=== PATIENT | female | born 1990 | race Caucasian/White ===

== ENCOUNTER 2016-12-02 05:59 | Observation (INO) | payer SELFPAY ==
--- NOTE | ~2016-12-02 | HP ---
History And Physical [facility] [address] [place]. [address] NAME: LUCRETIA CHAMORRO : 89 STATUS : ADM Jena PAT#: [id number] AGE: 26 ADM/REG DATE : 12/02/16 MR#: [id number] REPORT SERV DATE: 12/02/16 DICTATED BY: ANDRE LIN DATE: 12/02/16 REPORT STATUS : Draft TRANSCRIBED BY: MODRenay DATE: 12/02/16 DATE OF ADMISSION: 12/02/2016 REASON FOR ADMISSION: Hypertension, noncompliance. HISTORY OF PRESENT ILLNESS: This is a 26-year-old white female, who has been hospitalized every November for the last three years. In 2014, she presented with hypertension, who has had an abdominal ultrasound, looking for renal artery stenosis. Her MCV at that time was in the 95-97 range, however, is gradually increased yearly since she has been admitted. She admits to binge drinking, but now CT scan of the abdomen shows evidence of fatty liver infiltration. She did not follow up for blood pressure followup at the [facility] as was recommended and she has been out of medicines for an undetermined period of time. She was seen in the emergency room by nurse practitionerMark, and then nurse practitionerMacho, and admission was requested by the hospitalist group. PAST MEDICAL HISTORY: Prior hospitalizations twice. Folic acid level was a little bit low at 3.6 on 01/10/2016 with a normal B12 level. HOME MEDICATIONS: None. SOCIAL HISTORY: She grew up in [place]. Still lives in [place]. Present boyfriend she has been living with for the last four months. She practices no active contraception and says she is not trying to get . She smokes cigarettes about a pack a day or more or less. She smokes marijuana on about a weekly basis. She drinks about four to five days a week by her admission in an un-quantitated amount, usually to the point of drunkenness at least equivalent of two 4-ounce avtar per day. FAMILY HISTORY: Mother of cervical cancer. Father with hypertension, all have hypertensions throughout the father side of the family. She had two brothers, one with autism. REVIEW OF SYSTEMS: She has a headache when she comes off her medication early on, but does not persist. She has had no eye pain, double vision, nausea, vomiting, or diarrhea. No fits, seizures, convulsions, or unilateral weakness. No melena or hematemesis. She did have back pain, flank pain without dysuria, but was discovered to have pyuria by nurse practitioner, Macho. In the emergency room, she was given Rocephin. She has had no fever, chills, night sweats, melena, hematemesis, unilateral weakness, nausea, vomiting, or diarrhea. The remainder of review of systems is negative. PHYSICAL EXAMINATION: GENERAL: White female, very unkept, in no acute distress. HEENT: EOMI. Sclerae clear. Conjunctivae pink. Face is round and dubois shaped. NECK: No bruit without any JVD. History And Physical [address] [address] NAME: LUCRETIA CHAMORRO : 89 STATUS : ADM Jena PAT#: [id number] AGE: 26 ADM/REG DATE : 12/02/16 MR#: [id number] REPORT SERV DATE: 12/02/16 DICTATED BY: ANDRE LIN DATE: 12/02/16 REPORT STATUS : Draft TRANSCRIBED BY: JASMINE DATE: 12/02/16 CHEST: Clear to A and P. HEART: Regular S1, S2 without murmur, gallop, or click. BREASTS: Grossly without mass. ABDOMEN: Soft, nontender. Bowel sounds positive. No HSM. She does have abdominal centripetal obesity. EXTREMITIES: No edema. Distal pulses are intact in the dorsalis pedis and posterior tibial. Legs have no edema. NEUROLOGIC: She withdraws to plantar stimulation. Quality Control Director is equal and symmetric bilaterally. Coordination intact. SKIN: Dirty. She has a sour smell about her. She has a chapped medial upper lip and a piercing in the left nostril. LABORATORY DATA: Portable chest x-ray was done in the emergency room. Lungs were clear. Normal heart size. Troponin was 0.12, it has been elevated in the past. CT scan of the abdomen showed fatty liver. The CMP showed sodium 136, potassium 3.5, creatinine 0.7, glucose was 110, albumin 3.4, troponin 0.12. AST and ALT were normal. Bilirubin was 0.6. Partial thromboplastin time was 27. Her white count was 16.9, hemoglobin 15, hematocrit 44. MCV was 107.7. The urine drug screen showed cannabinoids only. Urine test negative. The urinalysis showed a large leukocyte esterase, positive nitrite, white count 15 per high-powered field with 7 red cells per high-powered field. ASSESSMENT: 1. Hypertensive urgency. This is likely rebound from cessation of drinking and cessation of medication. 2. Fatty liver likely secondary to excessive alcohol use over time. 3. Macrocytosis likely secondary to excessive alcohol use, though her folic acid level was low. We will replace B12 and folic acid while she is in the hospital here. 4. Urinary tract infection. Start Levaquin p.o. Check the reflex culture. PLAN: The patient is admitted to observation. Restarting home medication which was well tolerated before, though she never seek followup nor persistent medication for this. The patient has a dubois face, abdominal obesity as well, and may be evaluated for Maynard's disease in the future once she is off the alcohol and the blood pressure is under control. TAMI/JASMINE Andre Lin M.D. / [id number]
--- NOTE | ~2016-12-02 | DS ---
Discharge Summary [facility] [address] [place]. [address] NAME: LUCRETIA CHAMORRO : 89 STATUS : DIS Jena PAT#: [id number] AGE: 26 ADM/REG DATE : 12/02/16 MR#: [id number] REPORT SERV DATE: 12/03/16 DICTATED BY: DENA GASTON DATE: 12/03/16 REPORT STATUS : Draft TRANSCRIBED BY: MODL DATE: 12/03/16 ADMISSION DATE: 12/02/2016 DISCHARGE DATE: 12/03/2016 PCP is none but is going to be [facility]. FINAL DIAGNOSES: 1. Hypertension. 2. Urinary tract infection. 3. Fatty liver. 4. Alcohol abuse. 5. Hyponatremia. 6. Tobacco abuse. 7. Obesity. 8. Noncompliance. DIAGNOSTIC EXAM: Chest x-ray showing lungs clear. Heart size normal. CAT scan of the abdomen and pelvis showing no evidence of acute abnormality within the abdomen or pelvis. Hepatic steatosis. HOSPITAL COURSE: Please refer to the H and P done by Dr. Puente dated on 12/02/2016. Briefly, this is a 26-year-old female who comes in for abdominal pain and hypertension. The patient has a history of hypertension and was told several times to go to see a PCP or our [facility], but she never did. She continued having an unhealthy lifestyle with smoking and drinking and even the use of marijuana. The patient ran out of her medications three weeks ago and noticed that her blood pressure has been going up. She finally came to the emergency room and was admitted by Dr. Puente. The patient was placed on her metoprolol and hydrochlorothiazide. They got a urinalysis which shows a slightly dirty urine and started the patient on Levaquin and got a CAT scan for her abdominal pain which shows the above findings. The patient's blood pressure improved, her abdominal pain improved, and requests to go home. We do not have the cultures back for her UTI yet, but it seems like that the Levaquin is working. The patient was also found to have hyponatremia and this could be attributed to her drinking or her hydrochlorothiazide in which case it will not be good to keep the patient on the hydrochlorothiazide, so instead increase her metoprolol, and she likes it better, and she was counseled to stop smoking and drinking. The patient was told to follow up with the [facility], and she said she knows how to get there as her dad goes there, so once we finished the 24-hour urine collection ordered by Dr. Puente, we are going to discharge the patient home with family. She will be on the following medications: Levaquin 750 mg for two more days, metoprolol increased to 75 mg twice a day, and folic acid 1 mg a day. She will follow up with the [facility] in a month. This has been explained to her in front of a family member, and they agreed and understood the plan. TIME SPENT: 35 minutes. Discharge Summary [address] [place]. [address] NAME: LUCRETIA CHAMORRO : 89 STATUS : DIS Jena PAT#: [id number] AGE: 26 ADM/REG DATE : 12/02/16 MR#: [id number] REPORT SERV DATE: 12/03/16 DICTATED BY: DENA GASTON DATE: 12/03/16 REPORT STATUS : Draft TRANSCRIBED BY: JASMINE DATE: 12/03/16 DICTATED BY: Kulwant Collado/JASMINE Dena Gaston M.D. / [id number] CC: Dena Gaston M.D. NO PCP
[2016-12-02 05:45] LABS: ASCORBIC ACID (UR NOT ORDER) NEG (NEG); BILIRUBIN, URINE NEGATIVE (NEG); ER URINALYSIS TAT 0 Hrs 03 Mins; KETONE, URINE NEGATIVE (NEG); LEUKOCYTE ESTERASE(NOT OR LARGE (NEG); NITRITE (URINE) POS (NEG); WBC (NOT ORDERED) (RFLEX) 15 (0-5)
[2016-12-02 05:55] LABS: AMPHETAMINES (NOT ORD) NEG (NEG); BARBITURATES (NOT ORDERED NEG (NEG); BENZODIAZEPINES (NOT ORD) NEG (NEG); CANNABINOIDS (THC) POS (NEG); COCAINE (NOT ORDERED) NEG (NEG); OPIATES NEG (NEG); PHENCYCLIDINE(PCP) NEG (NEG); TRICYCLICS NEG (NEG)
[~2016-12-02 05:59] MED LIST: ADVIL PO; HCTZ12.5 PO; IBU400 PO; LEVOTHYROXIN25 MCG PO; LOP50 PO; LORTAB 5 PO; PROAIR HFA INH; SYN.025B PO
[2016-12-02 06:13] LABS: BASOPHILS 0.2 %; BASOPHILS ABSOLUTE 0.04 10/3/uL (0.0-0.16); EOSINOPHILS 2.5 %; EOSINOPHILS ABSOLUTE 0.43 10/3/uL (0.0-0.53); ER CBC TAT 0 Hrs 05 Mins; HEMATOCRIT 44.5 % (36.0-48.0); HEMOGLOBIN 15.5 g/dL (12.0-16.0); IMMATURE GRANULOCYTES 0.4 %; IMMATURE GRANULOCYTES ABSOLUTE 0.06 10/3/uL (0.0-0.11); LYMPHOCYTES 13.9 %; LYMPHOCYTES ABSOLUTE 2.35 10/3/uL (0.67-4.30); MEAN CORPUS HGB CONC 34.8 g/dL (32.0-36.0); MEAN CORPUSCULAR HEMOGLOB 37.5 pg (26.0-34.0); MEAN CORPUSCULAR VOLUME 107.7 fL (80-100); MEAN PLATELET VOLUME 9.6 fL (9.2-13.0); MONOCYTES 7.8 %; MONOCYTES ABSOLUTE 1.31 10/3/uL (0.21-1.20); NEUTROPHILS 75.2 %; NEUTROPHILS ABSOLUTE 12.69 10/3/uL (2.02-8.40); PLATELET COUNT 287 10/3/uL (150-400); RBC DISTRIBUTION WIDTH 13.8 % (12.0-16.0); RED CELL COUNT 4.13 10/6/uL (4.0-5.6); WHITE BLOOD CELLS 16.9 10/3/uL (4.5-10.5)
[2016-12-02 06:14] LABS: MANUAL DIFF NO %
[2016-12-02 06:19] LABS: PROTIME (NOT ORD) 13.3 SEC (12.0-14.5)
[2016-12-02 06:20] LABS: PARTIAL THROMBO TIME 27.3 SEC (22.5-37.2)
[2016-12-02 06:30] LABS: ALBUMIN 3.4 G/DL (3.5-5.0); ALKALINE PHOSPHATASE 72 U/L (45-117); BUN (BLOOD UREA NITROGEN) 6 MG/DL (6-23); CHLORIDE, SERUM 101 MMOL/L (96-112); CO2 (CARBON DIOXIDE) 27 MMOL/L (24-34); GFR AFRICAN AMERICAN 141 ML/MIN (>=60); GFR NON AFRICAN AMERICAN 121 ML/MIN (>=60); GLOBULIN 3.5 G/DL (2.5-4.1); GLUCOSE, SERUM 110 MG/DL (60-99); POTASSIUM, SERUM 3.5 MMOL/L (3.5-5.3); SGOT(AST) 29 U/L (5-40); SGPT(ALT) 42 U/L (5-65); SODIUM, SERUM 136 MMOL/L (135-148); TOTAL BILIRUBIN 0.6 MG/DL (0-1.2); TOTAL PROTEIN 6.9 G/DL (6.0-8.5)
[2016-12-02 06:31] LABS: TROPONIN I 0.12 NG/ML (<0.05)
[2016-12-02 09:25] LABS: TROPONIN I 0.12 NG/ML (<0.05)
[2016-12-02] MEDS ORDERED: MICROZIDE PO (09:39)
[2016-12-02] MEDS ORDERED: LOP50 PO (09:39)
[2016-12-02] MEDS ORDERED: ADVIL PO (09:40)
[2016-12-02] MEDS ORDERED: PROAIR HFA INH (09:40)
[2016-12-02] MEDS ORDERED: ZANTAC 150 PO (09:41)
[2016-12-02] MEDS ORDERED: POTASSIUM PO (09:42)
[2016-12-02] MEDS ORDERED: MULTIVIT/MIN PO (09:42)
[2016-12-03 04:31] LABS: BASOPHILS 0.1 %; BASOPHILS ABSOLUTE 0.01 10/3/uL (0.0-0.16); EOSINOPHILS 2.1 %; EOSINOPHILS ABSOLUTE 0.23 10/3/uL (0.0-0.53); HEMATOCRIT 43.5 % (36.0-48.0); HEMOGLOBIN 15.5 g/dL (12.0-16.0); IMMATURE GRANULOCYTES 0.3 %; IMMATURE GRANULOCYTES ABSOLUTE 0.03 10/3/uL (0.0-0.11); LYMPHOCYTES 21.7 %; LYMPHOCYTES ABSOLUTE 2.37 10/3/uL (0.67-4.30); MEAN CORPUS HGB CONC 35.6 g/dL (32.0-36.0); MEAN CORPUSCULAR HEMOGLOB 38.8 pg (26.0-34.0); MEAN PLATELET VOLUME 9.3 fL (9.2-13.0); MONOCYTES 12.2 %; MONOCYTES ABSOLUTE 1.33 10/3/uL (0.21-1.20); NEUTROPHILS 63.6 %; NEUTROPHILS ABSOLUTE 6.95 10/3/uL (2.02-8.40); PLATELET COUNT 243 10/3/uL (150-400); RBC DISTRIBUTION WIDTH 13.8 % (12.0-16.0); RED CELL COUNT 3.99 10/6/uL (4.0-5.6); WHITE BLOOD CELLS 10.9 10/3/uL (4.5-10.5)
[2016-12-03 04:32] LABS: MANUAL DIFF NO %
[2016-12-03 04:45] LABS: BUN (BLOOD UREA NITROGEN) 5 MG/DL (6-23); CALCIUM, SERUM 8.9 MG/DL (8.5-10.4); CHLORIDE, SERUM 105 MMOL/L (96-112); CO2 (CARBON DIOXIDE) 27 MMOL/L (24-34); CREATININE 0.67 MG/DL (0.55-1.02); GFR AFRICAN AMERICAN 143 ML/MIN (>=60); GFR NON AFRICAN AMERICAN 123 ML/MIN (>=60); GLUCOSE, SERUM 106 MG/DL (60-99); SODIUM, SERUM 132 MMOL/L (135-148)
[2016-12-03] MEDS ORDERED: LOP50 PO (13:23)
[2016-12-03] MEDS ORDERED: FOLIC PO (13:23)
[2016-12-03] MEDS ORDERED: LEVAQUIN750 MG PO (13:24)
[2016-12-05 08:14] LABS: TIME 24 h (()); TOTAL VOLUME 1175 mL (())
== END 2016-12-03 13:51 | disposition home or self-care (01) ==
LOC: ER 05:59 → CDU1 10:34
PROVIDERS: Internal Medicine; Nurse Practitioner; Physician Assistant
DX: I10 Essential (primary) hypertension (principal); N39.0 Urinary tract infection, site not specified; K70.0 Alcoholic fatty liver; E87.1 Hypo-osmolality and hyponatremia; E66.9 Obesity, unspecified; F17.210 Nicotine dependence, cigarettes, uncomplicated; Z91.19 Patient's noncompliance with other medical treatment and regimen; Z79.899 Other long term (current) drug therapy
CPT/HCPCS: 71010; 74176; 80048; 80053; 80305; 81001; 82530; 82977; 83735; 84484; 84703; 85025; 85610; 85730; 87077; 87086; 87186; 93005; 96372; 96374; 96375; 96376; 99285; A9270-GY; G0378; J0360; J1170; J2405

== ENCOUNTER 2017-03-15 12:03 | Emergency (ER) | payer SELFPAY ==
[~2017-03-15 12:03] MED LIST changes: +FOLIC PO; +LEVAQUIN750 MG PO; +MICROZIDE PO; +MULTIVIT/MIN PO; +POTASSIUM PO; +ZANTAC 150 PO
== END 2017-03-15 13:57 | disposition home or self-care (01) ==
LOC: ER 12:03
DX: S05.02XA Injury of conjunctiva and corneal abrasion without foreign body, left eye, initial encounter (principal); F17.200 Nicotine dependence, unspecified, uncomplicated; J45.909 Unspecified asthma, uncomplicated; I10 Essential (primary) hypertension; Z79.899 Other long term (current) drug therapy; X58.XXXA Exposure to other specified factors, initial encounter
CPT/HCPCS: 90471; 90714; 99282; A9270-GY